=== PATIENT | female | born 1970 | race Caucasian/White ===

== ENCOUNTER 2020-11-26 13:21 | Emergency (ER) | payer OTHER, SELFPAY ==
[2020-11-26 13:28] VITALS: BP 162/96; PULSE 70; RESP 14; TEMP 36.9; O2SAT 100
--- NOTE | 2020-11-26 14:17 | ED_ITS ---
HPI - Arrhythmia/Palpitations General Chief Complaint: Arrhythmia/Palpitations Stated Complaint: Funky Heartbeat Time Seen by Provider: 11/26/20 14:05 Source: patient Mode of arrival: Ambulatory Limitations: no limitations History of Present Illness HPI narrative: Patient is a 50-year-old otherwise healthy female who states that this morning had episodes where she felt like her heart was beating fast and skipping beats and had some chest pressure. She does state that she was feeling anxious at the time. Was a fairly sudden onset but it did gradually improve. She states she was not having any symptoms at the time of her EKG. Has had nothing like this before. Is not lightheaded. No prior cardiac issues. Related Data Allergies Allergy/AdvReac Type Severity Reaction Status Date / Time No Known Drug Allergies Allergy Verified 11/26/20 13:33 Review of Systems Constitutional Constitutional: Denies headache(s) ENT Ears, Nose, Mouth, and Throat: Denies vertigo, Denies dizziness, Denies headache(s) and Denies disequilibrium Cardiovascular Cardiovascular: Reports chest pain, Reports rapid heart rate, Reports irregular heart rhythm and Denies dyspnea Respiratory Respiratory: Denies dyspnea Gastrointestinal Gastrointestinal: Reports system reviewed and no additional complaints, except as documented Musculoskeletal Musculoskeletal: Reports system reviewed and no additional complaints, except as documented Neurologic Neurologic: Denies confusion, Denies vertigo, Denies dizziness, Denies headache(s) and Denies disequilibrium Psychiatric Psychiatric: Reports anxiety and Denies confusion Hematologic/Lymphatic On Anticoagulants: No Allergic/Immunologic Allergic/Immunologic: Reports system reviewed and no additional complaints, ex cept as documented Patient History Medical History Healthy adult Social History Smoking Status: Unknown if ever smoked Smoking Status: Unknown if ever smoked alcohol intake frequency: holidays/special occasions only Substance Use Type: does not use Exam Initial Vital Signs Initial Vital Signs: Vital Signs Temperature 98.5 F 11/26/20 13:28 Pulse Rate 70 11/26/20 13:28 Respiratory Rate 14 11/26/20 13:28 Blood Pressure 162/96 H 11/26/20 13:28 Pulse Oximetry 100 11/26/20 13:28 Const General: cooperative and comfortable Limitations: mental status not altered HENND Head: normal to inspection and normocephalic Resp Effort & Inspection: normal respiratory effort Auscultation: clear to auscultation bilaterally Cardio Rate: regular rate Rhythm: regular rhythm Skin Lesions: no lesions Rashes: no rashes Neuro General: patient alert, patient awake and patient oriented x3 Cognition: normal cognition Speech: speech normal Extrem General: normal to inspection and capillary refill normal Psych Appearance: grossly normal and well kempt Course Orders Ordered: ED Orders 11/26/20 13:32 EKG-12 Lead Stat Vital Signs Vital signs: Vital Signs - 8 hr 11/26/20 13:28 11/26/20 14:25 Temperature 98.5 F Pulse Rate 70 74 Respiratory Rate 14 18 Blood Pressure 162/96 H 121/70 Pulse Oximetry 100 100 MDM - Arrhythmia/Palpitations ECG Data Attestation: I personally reviewed and interpreted this ECG as follows: Prior ECG tracings: not available for review Interpretation: Sinus rhythm Ventricular rate of 77 Normal axis Normal QRS Normal QTC No ST T wave changes MDM Narrative Medical decision making narrative: Patient is asymptomatic at the time of my evaluation. Her EKG is unremarkable. Has a normal exam. We did discuss palpitations. She will contact her primary doctor to discuss further workup and to discuss the indications for Holter monitor. Patient was given return precautions and follow-up instructions. She expressed understanding and agreement. Discharge Plan Departure Patient Disposition: Home Clinical Impression: Palpitations Instructions: DI for Palpitations Activity Restrictions/Additional Instructions: Your EKG today was unremarkable. I recommend that you contact your primary doctor to discuss further workup in to discuss a referral to see a product safety technician to talk about a Holter monitor. Return to the emergency department for any new or worsening symptoms
[2020-11-26 14:25] VITALS: BP 121/70; PULSE 74; RESP 18; O2SAT 100
--- NOTE | 2020-11-26 14:29 | PC.NURSE ---
Pt had a very stressful moment at work and felt like her heart was pounding,denied pain
== END 2020-11-26 14:24 | disposition home or self-care (01) ==
PROVIDERS: Emergency Provider Emergency Medicine
DX: R00.2 Palpitations (principal); R07.9 Chest pain, unspecified
CPT/HCPCS: 93005; 99283

== ENCOUNTER → 2020-12-01 08:47 | Outpatient (CLI) | payer OTHER, SELFPAY ==
[2020-12-01 10:10] LABS: Add Manual Diff / Slide Review NO; Basophils Absolute Auto 0 /uL (0-100); Basophils Percent Auto 0.7 % (0-2); Eosinophils Absolute Auto 400 /uL (0-450); Eosinophils Percent Auto 5.9 % (2-4); Hematocrit 39.6 % (36-46); Hemoglobin 13.1 g/dL (12.0-16.0); Lymphocytes Absolute Auto 2000 /uL (1100-4500); Lymphocytes Percent Auto 29.8 % (25-40); Mean Corpuscular HGB Conc 32.9 % (30-36); Mean Corpuscular Hemoglobin 28.1 PG (26-34); Mean Corpuscular Volume 85.3 fL (80-100); Monocytes Absolute Auto 400 /uL (0-900); Monocytes Percent Auto 5.4 % (3-14); Neutrophils Absolute Auto 3900 /uL (1500-7000); Neutrophils Percent Auto 58.2 % (50-75); Platelet Count 277 X10^3/uL (150-400); Red Blood Cell Count 4.65 X10^6/uL (4.0-5.2); Red Cell Distribution Width 13.7 % (11.6-14.8); White Blood Cell Count 6.8 X10^3/uL (4.5-11.0)
[2020-12-01 10:50] LABS: Progesterone, Total 0.72 ng/mL
[2020-12-01 10:54] LABS: Alanine Aminotransferase 44 IU/L (<35); Albumin 3.9 g/dL (3.5-5.0); Albumin Globulin Ratio 1.3 (1.0-2.8); Alkaline Phosphatase 63 U/L (38-126); Aspartate Aminotransferase 32 IU/L (14-36); BUN Creatinine Ratio 15.5 (6-22); Bilirubin Total 0.7 mg/dL (0.2-1.3); Blood Urea Nitrogen 9 mg/dL (7-17); Calcium 9.9 mg/dL (8.4-10.2); Carbon Dioxide 28 mmol/L (22-32); Chloride 104 mmol/L (98-107); Cholesterol 256 mg/dL (140-199); Estimated Glomerular Filt Rate > 60.0 mL/min (>60); Globulin 2.9 g/dL (1.7-4.1); Glucose 100 mg/dL (70-100); HDL Cholesterol 54 mg/dL (40-60); HEMOLYSIS < 15 (0-50); LDL Cholesterol Calculated 180 mg/dL (<100); Potassium 4.4 mmol/L (3.4-5.1); Sodium 138 mmol/L (137-145); Total Protein 6.8 g/dL (6.3-8.2); Triglycerides 111 mg/dL (35-150)
[2020-12-01 11:11] LABS: Free T3, Triiodothyronine Free 3.72 pg/mL (2.77-5.27); Free T4, Direct Thyroxine 0.94 ng/dL (0.78-2.19)
[2020-12-02 04:34] LABS: Homocysteine 9.7 umol/L (0.0-14.5)
[2020-12-03 01:07] LABS: Zinc 74 ug/dL (44-115)
[2020-12-10 19:03] LABS: Estrogen 93 pg/mL (.)
== END ==
PROVIDERS: PCP Naturopath; Referring Provider Naturopath; Visit Provider Naturopath
DX: F41.9 Anxiety disorder, unspecified (principal); Z00.00 Encounter for general adult medical examination without abnormal findings; R00.2 Palpitations
CPT/HCPCS: 36415; 80053; 80061; 82672; 83001; 83002; 83090; 83735; 84144; 84439; 84443; 84481; 84630; 85025; 86900; 86901